=== PATIENT | male | born 1980 | race Caucasian/White ===

== ENCOUNTER 2016-09-27 19:18 | Emergency (ER) | payer SELFPAY ==
--- NOTE | 2016-09-27 20:38 | ED CLINICAL REPORT ---
Clinical Report - Physicians/Mid Levels [facility] [address] [place] [address] 09/27/2016 19:18 [id number] Time Seen: 20:13; initial patient contact. Arrived- By private vehicle. Historian- patient. HISTORY OF PRESENT ILLNESS Chief Complaint: EYE PAIN and FOREIGN BODY. This started 2 days ago, involves the left eye and is characterized as moderate in severity. pt was grinding, and the paper shredded, flinging debris into his left eye. The patient may have sustained an injury. This occurred at home. Mechanism- working with a disc pad grinder that fell apart and sent fragments into the air. Eye discomfort and irritation. Photophobia. REVIEW OF SYSTEMS No fever, sore throat or cough. All systems otherwise negative, except as recorded above. PAST HISTORY See nurses notes. No history of prior eye injury. He does not wear contact lenses. Tetanus immunization status is up-to-date. Problems: Back Pain. Cancer. Pedal Edema. Medications: None. Allergies: No Known Drug Allergy. SOCIAL HISTORY No drug use. ADDITIONAL NOTES The nursing notes have been reviewed with agreement regarding the chief complaint, HPI, ROS, PMH and patient medications and allergies. PHYSICAL EXAM Vital Signs: 09/27/2016 19:27 BP: 146/95. HR: 82. RR: 18. O2 saturation: 96%. Temp: 97.8 F. Have been reviewed. Appearance: Alert. Oriented X3. No acute distress. HEENT: Ears normal. Nose normal. Head appears normal to external inspection. Eyes: Visual acuity normal bilaterally. Left eyelid everted for examination. Right cornea examined with fluorescein stain. Conjunctivae and sclerae appear normal to inspection. Corneas appear normal to inspection. Pupils equal, round and reactive to light. Accommodation normal. Periorbital areas appear normal to inspection. Left upper eyelid: suspected foreign body of the middle of the upper lid. Left eye examined with slit lamp. Anterior chambers clear. Rt Eye: Right eye exam normal. Eyelid injury: (no injury seen, unable to removed in T system..). Lt Eye: Left eye exam normal. Single foreign body present under the eyelid (under the surface of the lid there is an area where the fluoroscene took up with no obvious FB, but took a qtip to the area and rolled it to see if dust particle was present, nothing noted..). Other corneal abnormality (fluroscene uptake under the left eyelid near the center lash margin). PROGRESS AND PROCEDURES Removal of Eye Foreign Body: After topical anesthesia with 2 drops of Proparacaine, a single foreign body was successfully removed from the left eyelid's undersurface using magnification lenses and loupes, a moistened sterile cotton swab and irrigation, lid eversion, fluorescein and a Wood's lamp. There were no complications encountered. Aftercare included antibiotic ointment. The patient was cooperative. Course of Care: Patient is stable. Physical exam findings are improved. Symptoms much better. CLINICAL IMPRESSION Removed conjunctival foreign body to left eye. INSTRUCTIONS No strenuous activity. No dietary restrictions. (see opthalmology if pain continues tomorrow.). Warnings: GENERAL WARNINGS: Return or contact your physician immediately if your condition worsens or changes unexpectedly, if not improving as expected, or if other problems arise. Prescription Medications: Polytrim ophthalmic solution: instill 2 drops into the affected eye every 3 hours while awake for 5 days, until symptoms improve. Dispense ten (10) mL. No refill. Substitution is permissible. Follow-up: Follow up with an plastic fixture builder tomorrow if not better. Understanding of the discharge instructions verbalized by patient. (Electronically signed by Yashira Pelayo PA-C 09/28/2016 1:09)
--- NOTE | 2016-09-27 20:38 | ED CLINICAL REPORT ---
Clinical Report - Physicians/Mid Levels [facility] [address] [place] [address] 09/27/2016 19:18 [id number] Time Seen: 20:13; initial patient contact. Arrived- By private vehicle. Historian- patient. HISTORY OF PRESENT ILLNESS Chief Complaint: EYE PAIN and FOREIGN BODY. This started 2 days ago, involves the left eye and is characterized as moderate in severity. pt was grinding, and the paper shredded, flinging debris into his left eye. The patient may have sustained an injury. This occurred at home. Mechanism- working with a metal grinder that fell apart and sent fragments into the air. Eye discomfort and irritation. Photophobia. REVIEW OF SYSTEMS No fever, sore throat or cough. All systems otherwise negative, except as recorded above. PAST HISTORY See nurses notes. No history of prior eye injury. He does not wear contact lenses. Tetanus immunization status is up-to-date. Problems: Back Pain. Cancer. Pedal Edema. Medications: None. Allergies: No Known Drug Allergy. SOCIAL HISTORY No drug use. ADDITIONAL NOTES The nursing notes have been reviewed with agreement regarding the chief complaint, HPI, ROS, PMH and patient medications and allergies. PHYSICAL EXAM Vital Signs: 09/27/2016 19:27 BP: 146/95. HR: 82. RR: 18. O2 saturation: 96%. Temp: 97.8 F. Have been reviewed. Appearance: Alert. Oriented X3. No acute distress. HEENT: Ears normal. Nose normal. Head appears normal to external inspection. Eyes: Visual acuity normal bilaterally. Left eyelid everted for examination. Right cornea examined with fluorescein stain. Conjunctivae and sclerae appear normal to inspection. Corneas appear normal to inspection. Pupils equal, round and reactive to light. Accommodation normal. Periorbital areas appear normal to inspection. Left upper eyelid: suspected foreign body of the middle of the upper lid. Left eye examined with slit lamp. Anterior chambers clear. Rt Eye: Right eye exam normal. Eyelid injury: (no injury seen, unable to removed in T system..). Lt Eye: Left eye exam normal. Single foreign body present under the eyelid (under the surface of the lid there is an area where the fluoroscene took up with no obvious FB, but took a qtip to the area and rolled it to see if dust particle was present, nothing noted..). Other corneal abnormality (fluroscene uptake under the left eyelid near the center lash margin). PROGRESS AND PROCEDURES Removal of Eye Foreign Body: After topical anesthesia with 2 drops of Proparacaine, a single foreign body was successfully removed from the left eyelid's undersurface using magnification lenses and loupes, a moistened sterile cotton swab and irrigation, lid eversion, fluorescein and a Wood's lamp. There were no complications encountered. Aftercare included antibiotic ointment. The patient was cooperative. Course of Care: Patient is stable. Physical exam findings are improved. Symptoms much better. CLINICAL IMPRESSION Removed conjunctival foreign body to left eye. INSTRUCTIONS No strenuous activity. No dietary restrictions. (see opthalmology if pain continues tomorrow.). Warnings: GENERAL WARNINGS: Return or contact your physician immediately if your condition worsens or changes unexpectedly, if not improving as expected, or if other problems arise. Prescription Medications: Polytrim ophthalmic solution: instill 2 drops into the affected eye every 3 hours while awake for 5 days, until symptoms improve. Dispense ten (10) mL. No refill. Substitution is permissible. Follow-up: Follow up with an cath lab tomorrow if not better. Understanding of the discharge instructions verbalized by patient. (Electronically signed by Yashira Pelayo PA-C 09/28/2016 1:09)
--- NOTE | 2016-09-27 20:39 | ED NURSING NOTES ---
Clinical Report - Nurses Located Within [facility] [address] [place] [address] 09/27/2016 19:18 [id number] Triage time 19:27. Acuity: LEVEL 4. Chief Complaint: REDNESS, PAIN and FOREIGN BODY TO LEFT EYE. Alert. No acute distress. ( Pt. thinks he might have a piece of sand paper in his eye. He was using a jaime and the edge of it "exploded."). SEPSIS SCREEN: Sepsis Screen. Negative (no infection suspected/documented). EUGENE COMA SCORE: [place] Coma Scale: 15- eyes open spontaneously (4); best verbal response- oriented x 4 (5); best motor response- obeys commands (6). --19:31 Elsy Kidd R.N. 19:27 09/27/16. BP: 146/95. HR: 82. RR: 18. O2 saturation: 96%. Temp: 97.8 F. Pain level now 4/10. --19:31 Elsy Kidd R.N. Weight: 104.3 kg stated. Height/Length: 70 inches Per Patient. BMI: 33. --19:30 Elsy Kidd R.N. Medications None. --19:30 Elsy Kidd R.N. Allergies No Known Drug Allergy. --19:31 Elsy Kidd R.N. History Arrived by private vehicle. Historian: patient. Accompanied by friend. Primary physician (Damon). Onset. (2 days ago). He sustained injury. Treatment C PYTHON DEVELOPER: None. PAST MEDICAL HX: Immunizations: up-to-date and (pt states his Tdap is up to date). SOCIAL HX: Smoker - current status unknown (cigarette)- 1 pack per day. Occasional alcohol use; consumes beer. No drug use. ABUSE ASSESSMENT: Abuse assessment: The patient was asked "Do you feel safe in your home?" and "Has anyone hurt you or threatened to hurt you?". No report of abuse. SELF HARM ASSESSMENT: A self harm assessment was performed. The patient answered "no" to the question "Do you have thoughts of harming or killing yourself?" and "Have you recently had thoughts about harming or killing others?". NUTRITIONAL RISK ASSESSMENT: The nutritional risk assessment revealed no deficiencies. FUNCTIONAL ASSESSMENT: Functional assessment: no impairments noted. LEARNING NEEDS ASSESSMENT: The learning needs assessment revealed no barriers. --19:31 Elsy Kidd R.N. PROBLEMS: Back Pain. Cancer. Pedal Edema. --19:31 Elsy Kidd R.N. ADDITIONAL SURGERIES: Knee Surgery. Lmph node right axillary. --19:31 Elsy Kidd R.N. Interventions ID band on patient. Ambulatory. --19:31 Elsy Kidd R.N. PHYSICAL ASSESSMENT Ambulatory to room. GENERAL / NEURO / PSYCH: Alert. Appears in no acute distress. HEENT: Visual acuity: left eye 20/30; right eye 20/20; both eyes 20/20. RESPIRATORY: Respirations not labored. CVS: Capillary refill less than 2 seconds. SKIN: Skin is warm and dry. --19:32 Elsy Kidd R.N. HEENT: Photophobia present. Conjunctival findings present: redness of the left conjunctiva. --19:32 Elsy Kidd R.N. NURSING PROGRESS NOTES Head of bed elevated. Two patient identifiers checked. Call light placed in reach. Side rails up x 2. Bed placed in lowest position. Brakes of bed on. Patient ready for evaluation- chart flagged. --19:32 Elsy Kidd R.N. 19:41 09/27/2016 Proparacaine Eye Drops 2 drop given. Given in the left eye. Allergies verified and confirmed 5 rights. --19:41 Elsy Kidd R.N. ( eye exam cart set up). --19:41 Elsy Kidd R.N. Locked/Released at 10/09/2016 15:13 by Dian Peguero R.N.
--- NOTE | 2016-09-27 20:39 | ED ORDER SUMMARY ---
..... Patient: RODRIGO VALENZUELA OrderSheet [facility] VisitID: [id number] [address] [place] [address] 36y, M Registration Date/Time: 09/27/2016 ORDER SHEET Weight: 104.3 kg (stated) Allergies: No Known Drug Allergy GENERAL ORDERS: MEDICATION ORDERS: Proparacaine Eye Drops (Solution 0.5 %) 2 drops (NOW) (19:40 09/27/2016 Javi Lorenzana.Lauren per protocol) (19:41 Javi Lorenzana.N.) IV FLUIDS: ORDER SHEET NOTES: [Electronically signed by Yashira Pelayo PA-C (01:09 09/28/2016)] [Electronically signed by Dian Peguero R.N. (15:13 10/09/2016)] [Electronically locked/signed by Dian Peguero R.N. (15:13 10/09/2016)]
--- NOTE | 2016-09-27 20:39 | ED NURSING NOTES ---
Clinical Report - Nurses [facility] [address] [place] [address] 09/27/2016 19:18 [id number] Triage time 19:27. Acuity: LEVEL 4. Chief Complaint: REDNESS, PAIN and FOREIGN BODY TO LEFT EYE. Alert. No acute distress. ( Pt. thinks he might have a piece of sand paper in his eye. He was using a jaime and the edge of it "exploded."). SEPSIS SCREEN: Sepsis Screen. Negative (no infection suspected/documented). EUGENE COMA SCORE: [place] Coma Scale: 15- eyes open spontaneously (4); best verbal response- oriented x 4 (5); best motor response- obeys commands (6). --19:31 Elsy Kidd R.N. 19:27 09/27/16. BP: 146/95. HR: 82. RR: 18. O2 saturation: 96%. Temp: 97.8 F. Pain level now 4/10. --19:31 Elsy Kidd R.N. Weight: 104.3 kg stated. Height/Length: 70 inches Per Patient. BMI: 33. --19:30 Elsy Kidd R.N. Medications None. --19:30 Elsy Kidd R.N. Allergies No Known Drug Allergy. --19:31 Elsy Kidd R.N. History Arrived by private vehicle. Historian: patient. Accompanied by friend. Primary physician (Damon). Onset. (2 days ago). He sustained injury. Treatment DRIVER MERCHANDISER: None. PAST MEDICAL HX: Immunizations: up-to-date and (pt states his Tdap is up to date). SOCIAL HX: Smoker - current status unknown (cigarette)- 1 pack per day. Occasional alcohol use; consumes beer. No drug use. ABUSE ASSESSMENT: Abuse assessment: The patient was asked "Do you feel safe in your home?" and "Has anyone hurt you or threatened to hurt you?". No report of abuse. SELF HARM ASSESSMENT: A self harm assessment was performed. The patient answered "no" to the question "Do you have thoughts of harming or killing yourself?" and "Have you recently had thoughts about harming or killing others?". NUTRITIONAL RISK ASSESSMENT: The nutritional risk assessment revealed no deficiencies. FUNCTIONAL ASSESSMENT: Functional assessment: no impairments noted. LEARNING NEEDS ASSESSMENT: The learning needs assessment revealed no barriers. --19:31 Elsy Kidd R.N. PROBLEMS: Back Pain. Cancer. Pedal Edema. --19:31 Elsy Kidd R.N. ADDITIONAL SURGERIES: Knee Surgery. Lmph node right axillary. --19:31 Elsy Kidd R.N. Interventions ID band on patient. Ambulatory. --19:31 Elsy Kidd R.N. PHYSICAL ASSESSMENT Ambulatory to room. GENERAL / NEURO / PSYCH: Alert. Appears in no acute distress. HEENT: Visual acuity: left eye 20/30; right eye 20/20; both eyes 20/20. RESPIRATORY: Respirations not labored. CVS: Capillary refill less than 2 seconds. SKIN: Skin is warm and dry. --19:32 Elsy Kidd R.N. HEENT: Photophobia present. Conjunctival findings present: redness of the left conjunctiva. --19:32 Elsy Kidd R.N. NURSING PROGRESS NOTES Head of bed elevated. Two patient identifiers checked. Call light placed in reach. Side rails up x 2. Bed placed in lowest position. Brakes of bed on. Patient ready for evaluation- chart flagged. --19:32 Elsy Kidd R.N. 19:41 09/27/2016 Proparacaine Eye Drops 2 drop given. Given in the left eye. Allergies verified and confirmed 5 rights. --19:41 Elsy Kidd R.N. ( eye exam cart set up). --19:41 Elsy Kidd R.N. Locked/Released at 10/09/2016 15:13 by Dian Peguero R.N.
--- NOTE | 2016-09-27 20:39 | ED ORDER SUMMARY ---
..... Patient: RODRIGO VALENZUELA OrderSheet [facility] VisitID: [id number] [address] [place] [address] 36y, M Registration Date/Time: 09/27/2016 ORDER SHEET Weight: 104.3 kg (stated) Allergies: No Known Drug Allergy GENERAL ORDERS: MEDICATION ORDERS: Proparacaine Eye Drops (Solution 0.5 %) 2 drops (NOW) (19:40 09/27/2016 Javi Lorenzana.Lauren per protocol) (19:41 Javi Lorenzana.N.) IV FLUIDS: ORDER SHEET NOTES: [Electronically signed by Yashira Pelayo PA-C (01:09 09/28/2016)] [Electronically signed by Dian Peguero R.N. (15:13 10/09/2016)] [Electronically locked/signed by Dian Peguero R.N. (15:13 10/09/2016)]
--- NOTE | 2016-10-09 15:14 | ED MAR SUMMARY ---
..... Medication Administration Record [facility] [address] [place] [address] Patient: RODRIGO VALENZUELA Visit ID: [id number] 36y, M Weight: 104.3 kg Height/Length: 70 in BMI: 33 ALLERGIES: No Known Drug Allergy Given 19:41 09/27/2016 Elsy Kidd R.N. Medication Administered: PROPARACAINE [EYE DROPS], Dose: 2 drop Eye Drops. Medication Ordered: Proparacaine Eye Drops (Solution 0.5 %) 2 drops (NOW).
--- NOTE | 2016-10-09 15:14 | ED DISCHARGE INSTRUCTIONS ---
Patient: RODRIGO VALENZUELA General Instructions [facility] VisitID: [id number] [place] [address] 36y, M Registration Date/Time: 09/27/2016 Removed conjunctival foreign body to left eye. INSTRUCTIONS No strenuous activity. No dietary restrictions. (see opthalmology if pain continues tomorrow.). Warnings: GENERAL WARNINGS: Return or contact your physician immediately if your condition worsens or changes unexpectedly, if not improving as expected, or if other problems arise. Prescription Medications: Polytrim ophthalmic solution: instill 2 drops into the affected eye every 3 hours while awake for 5 days, until symptoms improve. Dispense ten (10) mL. No refill. Substitution is permissible. Follow-up: Follow up with an galley hand tomorrow if not better. Understanding of the discharge instructions verbalized by patient. ADDITIONAL INFORMATION Particle In The Eye [Conjunctival F.B., Resolved] The pain in your eye is from a bit of dust or dirt or other small particle that got into your eye. The exam today shows that there is no more particle there. Any discomfort you still have should go away during the next 24 hours. Home Care: Apply a cool compress (towel soaked in cool water) to the eye that hurts. Do this 3-4 times a day. It will help to reduce redness and swelling. You may use decongestant eye drops (such as Visine) to reduce irritation and redness, unless another medicine was prescribed. You may use acetaminophen (Tylenol) or ibuprofen (Motrin, Advil) to control pain, unless another pain medicine was prescribed. [ NOTE: If you have chronic liver or kidney disease or ever had a stomach ulcer or GI bleeding, talk with your doctor before using these medicines.] Follow Up with your doctor or this facility as directed, or if your symptoms do not improve within two days. Get Prompt Medical Attention if any of the following occur: Increased swelling of the eyelid Increased pain or redness in the eye Drainage from the eye Redness in the skin around the eye You have been given the following additional information: Conjunctival Foreign Body, Resolved No strenuous activity. (Electronically signed by Yashira Pelayo PA-C 09/28/2016 1:09)
--- NOTE | 2016-10-09 15:14 | ED DISCHARGE INSTRUCTIONS ---
Patient: RODRIGO VALENZUELA General Instructions [facility] VisitID: [id number] [place] [address] 36y, M Registration Date/Time: 09/27/2016 Removed conjunctival foreign body to left eye. INSTRUCTIONS No strenuous activity. No dietary restrictions. (see opthalmology if pain continues tomorrow.). Warnings: GENERAL WARNINGS: Return or contact your physician immediately if your condition worsens or changes unexpectedly, if not improving as expected, or if other problems arise. Prescription Medications: Polytrim ophthalmic solution: instill 2 drops into the affected eye every 3 hours while awake for 5 days, until symptoms improve. Dispense ten (10) mL. No refill. Substitution is permissible. Follow-up: Follow up with an waistline joiner tomorrow if not better. Understanding of the discharge instructions verbalized by patient. ADDITIONAL INFORMATION Particle In The Eye [Conjunctival F.B., Resolved] The pain in your eye is from a bit of dust or dirt or other small particle that got into your eye. The exam today shows that there is no more particle there. Any discomfort you still have should go away during the next 24 hours. Home Care: Apply a cool compress (towel soaked in cool water) to the eye that hurts. Do this 3-4 times a day. It will help to reduce redness and swelling. You may use decongestant eye drops (such as Visine) to reduce irritation and redness, unless another medicine was prescribed. You may use acetaminophen (Tylenol) or ibuprofen (Motrin, Advil) to control pain, unless another pain medicine was prescribed. [ NOTE: If you have chronic liver or kidney disease or ever had a stomach ulcer or GI bleeding, talk with your doctor before using these medicines.] Follow Up with your doctor or this facility as directed, or if your symptoms do not improve within two days. Get Prompt Medical Attention if any of the following occur: Increased swelling of the eyelid Increased pain or redness in the eye Drainage from the eye Redness in the skin around the eye You have been given the following additional information: Conjunctival Foreign Body, Resolved No strenuous activity. (Electronically signed by Yashira Pelayo PA-C 09/28/2016 1:09)
--- NOTE | 2016-10-09 15:14 | ED MED RECONCILIATION SUMMARY ---
Patient: RODRIGO VALENZUELA Medication Reconciliation Report [facility] VisitID: [id number] [address] [place] [address] 36y, M Registration Date/Time: 09/27/2016 Weight: 104.3 kg Height/Length: 70 in. BMI: 33.0 ALLERGIES: No Known Drug Allergy The patient's Home Medications are listed below: NONE. The source(s) of the original Home Medication information: Not obtained. The following Medications were given to the patient in the Emergency Department: Proparacaine [Eye Drops] Eye Drops 2 drop, administered: 09/27/2016 7:41:00 PM The following Medications were prescribed to the patient: Polytrim ophthalmic solution: instill 2 drops into the affected eye every 3 hours while awake for 5 days, until symptoms improve. Dispense ten (10) mL. No refill. Substitution is permissible. -- Yashira Pelayo PA-C
--- NOTE | 2016-10-09 15:14 | ED MAR SUMMARY ---
..... Medication Administration Record [facility] [address] [place] [address] Patient: RODRIGO VALENZUELA Visit ID: [id number] 36y, M Weight: 104.3 kg Height/Length: 70 in BMI: 33 ALLERGIES: No Known Drug Allergy Given 19:41 09/27/2016 Elsy Kidd R.N. Medication Administered: PROPARACAINE [EYE DROPS], Dose: 2 drop Eye Drops. Medication Ordered: Proparacaine Eye Drops (Solution 0.5 %) 2 drops (NOW).
--- NOTE | 2016-10-09 15:14 | ED MED RECONCILIATION SUMMARY ---
Patient: RODRIGO VALENZUELA Medication Reconciliation Report [facility] VisitID: [id number] [address] [place] [address] 36y, M Registration Date/Time: 09/27/2016 Weight: 104.3 kg Height/Length: 70 in. BMI: 33.0 ALLERGIES: No Known Drug Allergy The patient's Home Medications are listed below: NONE. The source(s) of the original Home Medication information: Not obtained. The following Medications were given to the patient in the Emergency Department: Proparacaine [Eye Drops] Eye Drops 2 drop, administered: 09/27/2016 7:41:00 PM The following Medications were prescribed to the patient: Polytrim ophthalmic solution: instill 2 drops into the affected eye every 3 hours while awake for 5 days, until symptoms improve. Dispense ten (10) mL. No refill. Substitution is permissible. -- Yashira Pelayo PA-C
== END 2016-09-27 20:54 | disposition home or self-care (01) ==
LOC: ED SRH 19:18
DX: T15.12XA Foreign body in conjunctival sac, left eye, initial encounter (principal); F17.210 Nicotine dependence, cigarettes, uncomplicated